=== PATIENT | male | born 2000 | race Hispanic/Latino ===

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

== ENCOUNTER 2019-10-26 02:22 | Emergency (ER) | payer SELFPAY ==
[~2019-10-26 02:22] MED LIST changes: +CEPHALEXIN500 M1 PO
[2019-10-26] MEDS ORDERED: AMOXICILLIN500 MG PO (03:53)
[2019-10-26 04:10] VITALS: BP 124/74
== END 2019-10-26 04:10 | disposition home or self-care (01) | DRG 159 ==
LOC: ED 02:22
DX: S01.511A Laceration without foreign body of lip, initial encounter (principal); W18.30XA Fall on same level, unspecified, initial encounter

== ENCOUNTER 2019-12-02 17:12 | Emergency (ER) | payer OTHER ==
[~2019-12-02] VITALS: Ht 175.3 cm; Wt 102.0 kg
[~2019-12-02 17:12] MED LIST changes: +AMOXICILLIN500 MG PO
[2019-12-02] MEDS ORDERED: BACTROBAN TOP (19:05)
[2019-12-02] MEDS ORDERED: KEFLEX500 M1 PO (19:05)
[2019-12-02 19:15] VITALS: BP 159/89
== END 2019-12-02 19:15 | disposition home or self-care (01) | DRG 605 ==
LOC: ED 17:12
DX: S60.121A Contusion of right index finger with damage to nail, initial encounter (principal); W22.8XXA Striking against or struck by other objects, initial encounter

== ENCOUNTER 2023-05-22 20:09 | Emergency (ER) | payer OTHER ==
[2023-05-22] VITALS (14 sets, daily range): BP systolic 111–144; BP diastolic 48–84
[~2023-05-22] VITALS: Ht 175.3 cm; Wt 124.0 kg
[~2023-05-22 20:09] MED LIST changes: +BACTROBAN TOP; +KEFLEX500 M1 PO
[2023-05-22 20:41] LABS: BASO% 0.3 % (0-3); HEMATOCRIT 44.1 % (39.0-50.0); IMMATURE GRANULOCYTES 0.1 % (0.0-5.0); LYMPH% 36.2 % (15-41); MEAN CELL VOLUME 89.8 fL CALC (80.0-100.0); MEAN CORPUSCULAR HGB 30.5 pG CALC (26.0-32.0); MONO% 8.7 % (2-13); NEUT# 4.88 thou/uL (1.82-7.42); NEUT% 52.7 % (42-76); RED BLOOD COUNT 4.91 mill/uL (4.70-6.10); RED CELL DISTRI WIDTH 11.6 % (11.5-15.5)
[2023-05-22 20:59] LABS: ALBUMIN 4.5 g/dL (3.2-5.0); ALKALINE PHOSPHATASE 118 u/l (38-126); AMYLASE 50 u/l (30-110); ANION GAP 17 (6-22 (CALC)); BILIRUBIN, TOTAL 0.5 mg/dL (0.2-1.3); BUN 14 mg/dL (9-20); BUN/CREATININE RATIO 16 (12-20 (CALC)); CARBON DIOXIDE 23 mmol/l (22-30); CHLORIDE 103 mmol/l (95-108); CREATININE 0.9 mg/dL (0.7-1.3); GFR FOR AFR.AMER. > 60 ML/MIN (>=60 (CALC)); GFR OTHER RACES > 60 ML/MIN (>=60 (CALC)); LIPASE 56 u/l (23-300); POTASSIUM 3.5 mmol/l (3.5-5.1); SGOT/AST 47 u/l (17-59); SODIUM 139 mmol/l (137-146); TOTAL PROTEIN 7.5 g/dL (6.3-8.2)
[2023-05-22 21:03] LABS: D-DIMER 0.24 mg/L (0.19-0.60)
[2023-05-22 21:07] LABS: ACT PARTIAL THROMBO TIME 27.1 SECONDS (20.0-32.5); PROTHROMBIN TIME 10.2 SECONDS (9.0-12.5)
[2023-05-23 00:01] VITALS: BP 136/77
[2023-05-23 00:02] VITALS: BP 136/77
[2023-05-23 00:19] LABS: URINE BILIRUBIN - DIPSTICK Negative (NEGATIVE); URINE BLOOD DIPSTICK Negative (NEGATIVE); URINE COLOR Yellow; URINE GLUCOSE - DIPSTICK Negative (NEGATIVE); URINE KETONE Negative (NEGATIVE); URINE LEUK ESTERASE Negative (NEGATIVE); URINE NITRITE - DIPSTICK Negative (Negative); URINE PROTEIN - DIPSTICK Trace mg/dL (NEG-TRACE); URINE SPECIFIC GRAVITY >=1.030; URINE UROBILINOGEN - DIPSTICK 0.2 E.U./dL (0.2)
== END 2023-05-23 00:02 | disposition home or self-care (01) ==
LOC: ED 20:09
PROVIDERS: Family Medicine
DX: M94.0 Chondrocostal junction syndrome [Tietze] (principal)